=== PATIENT | female | born 1995 | race Caucasian/White ===

== ENCOUNTER 2019-11-12 02:45 | Emergency (ER) | payer OTHER ==
[~2019-11-12] VITALS: Ht 167.6 cm; Wt 70.0 kg
[2019-11-12] MEDS ORDERED: ACETAMINOPHEN 325 MG TABLET ONE (03:27)
[2019-11-12] MEDS ORDERED: ONDANSETRON ODT 4 MG ONE (03:27)
[2019-11-12] MEDS ORDERED: ONDANSETRON ODT 4 MG PO ONE (03:30)
[2019-11-12] MEDS ORDERED: ACETAMINOPHEN 325 MG TABLET PO ONE (03:30)
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
--- NOTE | 2019-11-12 04:42 | NUR ---
REVIEWED DISCHARGE INSTRUCTIONS AND PRESCRIPTION X 1 W/ PT, VERBALIZED UNDERSTANDING TO INFORMATION PROVIDED INCLUDING FOLLOW UP CARE AND RETURN PRECAUTIONS, DENIED QUESTIONS/CONCERNS. PT AMBULATED FROM ED W/ FAMILY MEMBER.
[2019-11-12 04:54] VITALS: BP 117/63
== END 2019-11-12 04:56 | disposition home or self-care (01) ==
LOC: ED 04:15
DX: S06.0X0A Concussion without loss of consciousness, initial encounter (principal); J45.909 Unspecified asthma, uncomplicated; F17.200 Nicotine dependence, unspecified, uncomplicated; Z72.89 Other problems related to lifestyle; Z91.81 History of falling; W01.0XXA Fall on same level from slipping, tripping and stumbling without subsequent striking against object, initial encounter; Y93.01 Activity, walking, marching and hiking; Y92.413 State road as the place of occurrence of the external cause; Y99.8 Other external cause status
CPT/HCPCS: 70450; 99284; Q0162